=== PATIENT | female | born 1955 | race Caucasian/White ===

== ENCOUNTER 2019-05-02 20:31 | Emergency (ER) | payer OTHER ==
[~2019-05-02] VITALS: Ht 170.2 cm; Wt 72.6 kg
--- NOTE | 2019-05-02 21:50 | NUR ---
US at bedside.
--- NOTE | 2019-05-02 22:09 | NUR ---
Patient discharged to home in stable conditon. Written and verbal after care instructions given. Patient verbalizes understanding of instructions. Ambulated from ER with stable gait. All belongings with patient.
[2019-05-02 22:10] VITALS: BP 131/87
== END 2019-05-02 22:10 | disposition home or self-care (01) ==
LOC: ER 20:31
DX: R60.9 Edema, unspecified (principal)
CPT/HCPCS: A4663